=== PATIENT | female | born 1950 | race Caucasian/White ===

== ENCOUNTER → 2017-10-08 | Outpatient (CLI) | payer OTHER | LOC: BRMIMAGING 07:46 | PROVIDERS: ATTEND Internal Medicine | DX: K43.9 Ventral hernia without obstruction or gangrene (principal) | CPT/HCPCS: 76705-PO ==

== ENCOUNTER → 2018-11-27 | Outpatient (CLI) | payer OTHER | LOC: BRMIMAGING 11:14 ==